=== PATIENT | female | born 1980 | race Caucasian/White ===

== ENCOUNTER 2017-06-24 06:54 | Emergency (ER) | payer MEDICAID ==
[~2017-06-24] VITALS: Ht 167.6 cm; Wt 98.9 kg
[~2017-06-24 06:54] MED LIST: PEP15L PO
[2017-06-24 06:59] VITALS: BP 139/72
[2017-06-24] MEDS ORDERED: RANI150T8 PO (07:06)
--- NOTE | 2017-06-24 07:08 | NUR ---
PT TAKEN TO BED 7
--- NOTE | 2017-06-24 07:12 | NUR ---
36F BIB FAMILY C/O BL LOWER BACK PAIN, PRESSURE, NON-RADIATING, 06/12 X 3 WEEKS; PT STATES NO TRAUMA OR INJURY TO SITE AT THIS TIME; PT C/O BL CHEST PRESSURE WITH BREATHING, NON-RADIATING, 05/13 X 0400 TODAY; BL LUNG SOUNDS CLEAR, RR EVEN/UNLABORED, EQUAL RISE/FALL OF CHEST NOTED AT THIS TIME; PT STATES NO N/V/D, OR COUGH AT THIS TIME; SKIN IS WARM/DRY/INTACT; STEADY GAIT; PT RESTING IN BED WITH HOB ELEVATED AND IN LOWEST POSITION; POSITIONED FOR COMFORT; ER MD MADE AWARE OF STATUS. WILL CONTINUE TO MONITOR.
--- NOTE | 2017-06-24 07:17 | NUR ---
Alok rapp in ED - 06/24/17 at [address] Solomon evaluating patient at bedside.
--- NOTE | 2017-06-24 07:17 | NUR ---
ER MD DR. SHI EVALUATING PT AT BEDSIDE.
[2017-06-24] MEDS ORDERED: KETOROLAC 60 MG/2 ML VIAL IM ONE (07:25)
[2017-06-24] MEDS ORDERED: DIAZEPAM 5 MG TAB PO ONE (07:25)
[2017-06-24] MEDS ORDERED: oxyCODONE/APAP 5/325 MG 1 TAB TAB PO ONE (07:25)
--- NOTE | 2017-06-24 09:06 | NUR ---
PT APPEARS TO BE RESTING COMFORTABLY IN BED; RR EVEN/UNLABORED; POSITIONED FOR COMFORT; FAMILY AT BEDSIDE; WILL CONTINUE TO MONITOR.
--- NOTE | 2017-06-24 09:29 | NUR ---
JENNIFER SHI AT BEDSIDE.
[2017-06-24 09:55] VITALS: BP 116/72
--- NOTE | 2017-06-24 09:55 | NUR ---
Patient discharged with v/s stable. Written and verbal after care instructions given and explained. Patient alert, oriented and verbalized understanding of instructions. Ambulatory with steady gait. All questions addressed prior to discharge. ID band removed. Patient advised to follow up with PMD. Rx of IBUPROFEN 800MG TAB, NORCO 5MG-325MG TAB & FLEXERIL 10MG TAB given. Patient educated on indication of medication including possible reaction and side effects. Opportunity to ask questions provided and answered.
== END 2017-06-24 09:55 | disposition home or self-care (01) ==
LOC: MED 06:54
DX: S39.012A Strain of muscle, fascia and tendon of lower back, initial encounter (principal); E66.01 Morbid (severe) obesity due to excess calories; K21.9 Gastro-esophageal reflux disease without esophagitis; Z90.49 Acquired absence of other specified parts of digestive tract; Z79.899 Other long term (current) drug therapy; X58.XXXA Exposure to other specified factors, initial encounter; Y93.89 Activity, other specified; Y92.89 Other specified places as the place of occurrence of the external cause; Y99.8 Other external cause status
CPT/HCPCS: 81002; 81025; 96372; 99283; J1885

== ENCOUNTER 2018-06-05 12:12 | Emergency (ER) | payer MEDICAID ==
[~2018-06-05] VITALS: Ht 160 cm; Wt 99.8 kg
[~2018-06-05 12:12] MED LIST changes: -PEP15L PO; +RANI150T8 PO
[2018-06-05 12:44] VITALS: BP 128/84
--- NOTE | 2018-06-05 12:48 | NUR ---
AFTER PROVIDING URINE SAMPLE PT AMBULATES BACK TO THE LOBBY WAITING FOR AVAILABLE BED
--- NOTE | 2018-06-05 16:17 | NUR ---
CALLED AT THE LOBBY NO ANSWER, MALISSA
== END 2018-06-05 16:17 | disposition left against medical advice (07) ==
LOC: MED 12:12
DX: R10.13 Epigastric pain (principal); R11.10 Vomiting, unspecified; R19.7 Diarrhea, unspecified; Z53.21 Procedure and treatment not carried out due to patient leaving prior to being seen by health care provider

== ENCOUNTER 2019-06-07 03:56 | Emergency (ER) | payer MEDICAID ==
[~2019-06-07] VITALS: Ht 157.5 cm; Wt 93.9 kg
[2019-06-07 04:01] VITALS: BP 109/77
[2019-06-07] MEDS ORDERED: DIAZEPAM 5 MG TAB PO ONE (04:45)
[2019-06-07] MEDS ORDERED: KETOROLAC 30 MG/ML VIAL IM ONE (04:45)
[2019-06-07 06:32] VITALS: BP 109/63
== END 2019-06-07 06:24 | disposition home or self-care (01) ==
LOC: MED 03:56
DX: B34.9 Viral infection, unspecified (principal); K21.9 Gastro-esophageal reflux disease without esophagitis; Z90.49 Acquired absence of other specified parts of digestive tract; Z79.899 Other long term (current) drug therapy
CPT/HCPCS: 71045; 81002; 81025; 87804; 96372; 99284; J1885; Q0092